=== PATIENT | female | born 1970 | race Caucasian/White ===

== ENCOUNTER 2017-11-22 11:36 | Emergency (ER) | payer BC, SELFPAY ==
[2017-11-22 11:36] VITALS: BP 161/75; PULSE 125; RESP 22; TEMP 37.2; O2SAT 98; BMI 28.1
--- NOTE | 2017-11-22 11:51 | CT_ITS ---
STUDY: CT ABDOMEN AND PELVIS WITHOUT CONTRAST REASON FOR EXAM: Female, 47 years old. Right flank pain x2 weeks RADIATION DOSAGE (If Supplied By Facility): CTDIvol = ( 12.50 ) mGy, DLP = ( 655.82 ) mGycm TECHNIQUE: Transaxial images were obtained from the dome of the diaphragm to the symphysis pubis without oral contrast, and without intravenous contrast. Sagittal and coronal images were reconstructed. Individualized dose optimization techniques were used for this CT. COMPARISON: None. FINDINGS: The visualized lung bases are unremarkable. The visualized portions of the heart are within normal limits. Normal liver. There is non-visualization of the gallbladder, which may be secondary to either contraction or a prior cholecystectomy. Normal spleen. Normal pancreas. Normal bilateral adrenal glands. Normal right kidney. Normal left kidney. Normal visualized stomach. Normal small intestine. Prominent retained stool in the cecal region. Remainder of the colon is within normal limits. The appendix is visualized and appears normal. Normal abdominal aorta. Normal inferior vena cava. Normal retroperitoneum. Normal urinary bladder. Normal visualized uterus. Normal abdominal wall. Normal osseous structures. CT/Abdomen/Pelvis without Cont IMPRESSION: No evidence of urolithiasis or renal obstruction. Fecal retention in the cecal region. Electronically Signed: Kei Martin DO at 13:17 EDT Tel , Service support ,
[2017-11-22 11:59] LABS: Absolute Lymphocyte Count 1.52 X10^3/ul (0.83-4.51); Absolute Neutrophil Count 8.3 X10^3/uL (2.0-7.7); Basophil# 0.02 X10^3/uL; Basophil% 0.2 % (0-1); Hematocrit 44.6 % (37-47); Hemoglobin 14.7 g/dl (12.0-15.0); Lymphocyte # 1.52 X10^3/ul (4.0); Lymphocyte % 14.9 % (19-41); Mean Corpuscular Hgb 30.7 pg (27.0-32.0); Mean Corpuscular Volume 93.1 fL (81-99); Mean Platelet Vol. 9.6 fl (6.2-12.0); Monocyte# 0.33 X10^3/uL; Monocyte% 3.2 % (0-10); Neutrophil # 8.25 X10^3/uL (2.7-7.7); Neutrophil % 80.6 % (47-70); POSITIVE COUNT NO; POSITIVE DIFFERENTIAL NO; POSITIVE MORPHOLOGY NO; Platelet Count 307 K/mm3 (150-450); RBC Distribution Width CV 13.6 % (11.6-14.6); RBC Distribution Width SD 46.4 fl (35.1-43.9); Red Blood Count 4.79 M/mm3 (4.2-5.4); White Blood Count 10.2 K/mm3 (4.4-11.0)
--- NOTE | 2017-11-22 12:08 | ED.VISSUMM ---
- ER Visit Summary Date of Service: 11/22/17 Chief Complaint: [] Right flank pain for 2 weeks after bathing dog History of Present Illness: The patient is a 47 F [] was bathing a dog in the bathtub she believes, no direct trauma was seen by chiropractor x-rays were done she then had manipulation therapy with no real improvement. Today she was seen in urgent care center showed UA hematuria she was sent to the emergency department. She has had no nausea or vomiting no fever no cough and again no direct trauma her bowel bladder habits have been unremarkable there is no radiation of the pain other than sometimes it comes across to her right flank she points her right upper back as the focus of the pain and again she is otherwise a healthy individual no past history Physical Examination: [] Vitals are within normal range head neck unremarkable lungs are clear heart tones are normal she has a vague pain to the right flank region comes across to the right middle abdomen the midline C-spine T-spine lumbar spine nontender she has full range of motion of lower extremities without any symptoms the pain does not radiate to her legs she is able to stand and walk without difficulty her neurologic exam is normal Test Results: [] Emergency Department Course and Treatment: [] IV fluids screening labs CT morphine lab studies are all generally unremarkable see those reports, UA shows trace leukocyte esterase no white cells no red cells CBC chemistry CT flank otherwise unremarkable appendix seen and normal no signs of stone or other abnormality see those reports all the above the patient urine culture was sent at this time this is been going on for weeks I believe is safe discharge home on Naprosyn for pain control follow-up with her family doctor for further management of explained exact etiology of her symptoms are unclear there is no definitive evidence of a issue and she will need further outpatient follow-up and she agrees, she did have a lumbar spine x-ray with her chiropractor's office she reports was normal given that I explained her any other to outpatient management options or imaging will be determined when she is her follow-up physicians she agrees Treatment Plan: [] Disposition: [] Home stable Impression: [] rt Flank pain etiology unclear This note was generated with [employer] dictation software. It may contain incorrect words, spelling, and punctuation that were not noted in review of the chart prior to signing ED Disposition - Plan for ED Patient: Chief Complaint: Flank Pain Referrals: Manuel Steinberg MD [Primary Care Provider] -
[2017-11-22 12:14] LABS: Anion Gap 7 (5-15); BUN 10 mg/dL (7-18); BUN/Creat Ratio 9.9 RATIO (10-20); Chloride 108 mmol/L (98-107); Creatinine, Serum 1.01 mg/dL (0.55-1.02); EST Glomerular Filtration Rate 62 mL/min (>60); Est Glom Filt Rate - Afr Amer 75 mL/min (>60); Estimated Creatinine Clearance 66.96 ml/min; Glucose 97 mg/dL (74-106); Potassium 3.9 mmol/L (3.5-5.1); Sodium Level 139 mmol/L (136-145)
[2017-11-22 12:21] LABS: Pregnancy, Serum, hCG Quali. NEGATIVE Negative (0-9 Nonpreg)
[2017-11-22] MEDS: morphine 8 MG/ML Syringe IV (12:22)
[2017-11-22] MEDS: 0.9% Normal Saline 1,000 ML 999 ML IV (12:22)
[2017-11-22] MEDS: Ondansetron 4 MG/2 ML Vial IV (12:23)
[2017-11-22 12:55] VITALS: BP 132/97; PULSE 83; RESP 18; O2SAT 99
[2017-11-22 13:19] LABS: Bacteria 0 SEEN /hpf (None Seen); Mucous, Urine 0 SEEN /hpf (<or=2+); Red Blood Cells-Urine 0 SEEN /hpf (0-5)
[2017-11-22 13:20] LABS: Color, Urine Yellow (Yellow); Glucose, Dipstick Normal (Normal); Ketone-Dipstick Negative (Negative); Leukocyte Esterase-Dipstick 100 /ul (Negative); Nitrite-Dipstick Negative (Negative); Occult Blood-Urine 10 /ul (Negative); Protein-Dipstick Negative (Negative); Urine Bilirubin Dipstick Negative (Negative); Urine Clarity Sl. Cloudy (Clear); Urine Urobilinogen Normal (Normal)
[2017-11-22 13:26] LABS: Squamous Epithelial Cells - UA 5-10 SEEN /hpf (5-10); White Blood Cells 0-5 SEEN /hpf (0-5)
--- NOTE | 2017-11-22 13:30 | ED.DEP ---
ED Disposition - Plan for ED Patient: Chief Complaint: Flank Pain Instructions: ED Flank Pain Uncertain Cause Prescriptions: Naproxen [Naprosyn] 500 mg PO BID PRN #20 tab Referrals: Manuel Steinberg MD [Primary Care Provider] -
[2017-11-22 13:38] VITALS: BP 125/81; PULSE 76; O2SAT 98
== END 2017-11-22 13:42 | disposition home or self-care (01) ==
LOC: ED 12:52
PROVIDERS: Emergency Provider Emergency Medicine; Family Provider Family Medicine; PCP Family Medicine
DX: R10.9 Unspecified abdominal pain (principal)
CPT/HCPCS: 74176; 80048; 81001; 84703; 85025; 87086; 87088; 96361; 96374; 96375; 99284; J7030; A4216